=== PATIENT | female | born 1940 | race Caucasian/White ===

== ENCOUNTER 2017-04-28 20:35 | Emergency (ER) | payer MEDICARE, OTHER ==
[2017-04-28] MEDS ORDERED: Nitroglycerin 50 MG/250 ML BOT 250 ML ONE (21:33)
[2017-04-28 21:48] LABS: #Basophils 0.1 thou/uL (0.0-0.2); #Eosinphils 0.1 thou/uL (0.0-0.7); #Lymphocytes 2.3 thou/uL (1.20-3.40); #Monocytes 0.4 thou/uL (0.11-0.59); %Eosinophils 1.2 % (0.0-10.0); %Lymphocytes 39.7 % (21.0-51.0); %Neutrophils 51.1 % (42.0-75.0); Hemoglobin 14.1 g/dL (12.0-16.0); Mean Corpuscular HGB CONC 31.9 g/dL (32.0-36.0); Mean Corpuscular Hemoglobin 29.1 pg (27.0-31.0); Mean Corpuscular Volume 91.1 fl (81.0-99.0); Mean Platelet Volume 7.4 fL (7.4-10.4); Platelet Count 197 thou/uL (130-400); RBC Distribution Width 13.1 % (11.5-14.5); Red Blood Cell (RBC) Count 4.87 mill/uL (4.20-5.40); White Blood Cell (WBC) Count 5.9 thou/uL (4.8-10.8)
[2017-04-28 21:49] LABS: Bilirubin Negative (Negative); Blood, Urine Negative (Negative); Clarity Clear (Clear); Glucose, Urine (Dipstick) Negative (Negative); Leukocyte Negative (Negative); Nitrite Negative (Negative); Protein, Urine (Dipstick) 30 mg/dL (Neg-Trace); Specific Gravity, Urine 1.015 (1.005-1.030); Urobilinogen 0.2 mg/dL (0.2-1.0)
[2017-04-28 21:59] LABS: ALT (SGPT) Less than 3 U/L (8-55); AST (SGOT) 21 U/L (5-34); Albumin 4.2 g/dL (3.4-4.8); Alkaline Phosphatase 90 U/L (40-150); Anion Gap 17 mmol/L (10-20); BUN (Urea Nitrogen) 18 mg/dL (9.8-20.1); Bilirubin, Total 0.4 mg/dL (0.2-1.2); Calc. Creatinine Clearance 0 mL/min (70-130); Calcium 9.8 mg/dL (7.8-10.44); Carbon Dioxide 26 mmol/L (23-31); Chloride 102 mmol/L (98-107); Estimated GFR-MDRD 45; Globulin 3.9 g/dL (2.4-3.5); Glucose 81 mg/dL (83-110); Protein, Total 8.1 g/dL (6.0-8.3); Sodium 141 mmol/L (136-145)
[2017-04-28 22:02] LABS: CKMB 1.6 ng/mL (0-6.6); Troponin I Less than 0.010 ng/mL (< 0.028)
[2017-04-28 22:07] LABS: Other Microscopic Description 1+ MUCUS; RBC/HPF 0-3 HPF (0-3); Squamous Epithelial 0-3 HPF (0-3); WBC/HPF 0-3 HPF (0-3)
--- NOTE | 2017-04-28 22:08 | CT ---
CT BRAIN WITHOUT CONTRAST: Date: 04-28-17 Comparison: 07-13-14 FINDINGS: Atrophy is present, predominately in the frontal region. The ventricles are normal in size for age a nd atrophy. No intracranial bleeding or extraaxial hematoma was seen. There is no sign of acute stro ke, mass, or edema. The calvarium appears intact. The sphenoid sinus is clear, as are the mastoid ai r cells. IMPRESSION: Chronic changes but no acute findings. Report discussed with Dr. Chew at 2113 hours on 04-28-17. POS: HOME
--- NOTE | 2017-04-29 07:04 | RAD ---
PORTABLE CHEST: Date: 04/28/17 An AP portable film at 2110 hours is compared with an 05/04/16 study. FINDINGS: The heart is normal in size. Median sternotomy sutures are seen from prior surgery. The lungs are cl ear. No infiltrate, effusion, or pneumothorax seen. The bony structures appear intact. IMPRESSION: No acute thoracic findings. POS: HOME
== END 2017-04-28 22:45 | disposition short-term general hospital (02) ==
LOC: BURERS 20:35
DX: I67.4 Hypertensive encephalopathy (principal); E78.5 Hyperlipidemia, unspecified; E03.9 Hypothyroidism, unspecified; I11.0 Hypertensive heart disease with heart failure; I50.9 Heart failure, unspecified; Z79.899 Other long term (current) drug therapy; W17.89XA Other fall from one level to another, initial encounter
CPT/HCPCS: 36415; 70450; 71010; 80053; 81003; 81015; 82553; 83605; 84484; 85025; 87040; 87086; 93005; 94760; 96365

== ENCOUNTER 2018-01-20 14:21 | Emergency (ER) | payer MEDICARE, OTHER ==
[2018-01-20] MEDS ORDERED: Ibuprofen 800 MG TAB ONE (15:26)
[2018-01-20] MEDS ORDERED: HYDROcodone/Acetaminophen 5/325 mg Tablet ONE (15:26)
--- NOTE | 2018-01-20 21:26 | RAD ---
LEFT ANKLE THREE VIEWS: 01/20/2018 FINDINGS: A transverse fracture is present through the tip of the lateral malleolus. There is no significant d isplacement. The distal tibia appears intact. There is considerable soft tissue swelling around the ankle. The tibiotalar joint seemed unremarkable. Incidentally noted was a large calcaneal spur. I t is difficult on these views for me to fully assess the base of the fifth metatarsal. If there is a ny pain here, foot films would be needed to clear it of any fracture. IMPRESSION: 1. Nondisplaced fracture of the distal fibula, at the lateral malleolus. 2. Difficult to assess base of the fifth metatarsal. POS: HOME
== END 2018-01-20 15:45 | disposition home or self-care (01) ==
LOC: BURERS 14:21
DX: S82.65XA Nondisplaced fracture of lateral malleolus of left fibula, initial encounter for closed fracture (principal); S80.01XA Contusion of right knee, initial encounter; E78.5 Hyperlipidemia, unspecified; I11.0 Hypertensive heart disease with heart failure; I50.9 Heart failure, unspecified; E03.9 Hypothyroidism, unspecified; Z87.891 Personal history of nicotine dependence; Z79.899 Other long term (current) drug therapy; V89.2XXA Person injured in unspecified motor-vehicle accident, traffic, initial encounter

== ENCOUNTER 2018-03-12 10:11 | Emergency (ER) | payer MEDICARE, OTHER ==
[2018-03-12 10:57] LABS: Bilirubin Negative (Negative); Blood, Urine Trace (Negative); Clarity Clear (Clear); Glucose, Urine (Dipstick) Negative (Negative); Leukocyte Negative (Negative); Nitrite Negative (Negative); Protein, Urine (Dipstick) Trace mg/dL (Neg-Trace); Urobilinogen 0.2 mg/dL (0.2-1.0); pH, Urine 6.5 (5.0-9.0)
[2018-03-12 11:06] LABS: Anion Gap 13 mmol/L (10-20); BUN (Urea Nitrogen) 25 mg/dL (9.8-20.1); Bacteria/HPF Rare-Few HPF (None Seen); Calc. Creatinine Clearance 0 mL/min (70-130); Carbon Dioxide 28 mmol/L (23-31); Chloride 107 mmol/L (98-107); Estimated GFR-MDRD 73; Glucose 88 mg/dL (83-110); Potassium 3.6 mmol/L (3.5-5.1); RBC/HPF 0-3 HPF (0-3); Sodium 144 mmol/L (136-145); Squamous Epithelial 0-3 HPF (0-3); WBC/HPF 0-3 HPF (0-3)
== END 2018-03-12 11:27 | disposition home or self-care (01) ==
LOC: BURERS 10:11
DX: I11.0 Hypertensive heart disease with heart failure (principal); E03.9 Hypothyroidism, unspecified; E78.5 Hyperlipidemia, unspecified; Z87.891 Personal history of nicotine dependence; Z79.899 Other long term (current) drug therapy
CPT/HCPCS: 36415; 80048; 81003; 81015; 99283

== ENCOUNTER 2019-09-22 16:46 | Emergency (ER) | payer MEDICARE, OTHER ==
[2019-09-22 17:22] LABS: #Basophils 0.1 thou/uL (0.0-0.2); #Monocytes 0.3 thou/uL (0.11-0.59); %Basophils 1.1 % (0.0-1.0); %Eosinophils 0.4 % (0.0-10.0); %Lymphocytes 31.1 % (21.0-51.0); %Monocytes 5.4 % (0.0-10.0); Hemoglobin 12.6 g/dL (12.0-16.0); Mean Corpuscular HGB CONC 32.4 g/dL (32.0-36.0); Mean Corpuscular Hemoglobin 29.1 pg (27.0-31.0); Mean Corpuscular Volume 89.6 fL (78.0-98.0); Mean Platelet Volume 8.5 fL (7.4-10.4); Platelet Count 143 thou/uL (130-400); RBC Distribution Width 14.5 % (11.5-14.5); Red Blood Cell (RBC) Count 4.34 mill/uL (4.20-5.40); White Blood Cell (WBC) Count 6.4 thou/uL (4.8-10.8)
[2019-09-22 17:34] LABS: ALT (SGPT) 18 U/L (8-55); AST (SGOT) 29 U/L (5-34); Alkaline Phosphatase 80 U/L (40-110); Anion Gap 20 mmol/L (10-20); BUN (Urea Nitrogen) 41 mg/dL (9.8-20.1); Bilirubin, Total 0.3 mg/dL (0.2-1.2); Calc. Creatinine Clearance 0 mL/min (70-130); Calcium 8.9 mg/dL (7.8-10.44); Carbon Dioxide 16 mmol/L (23-31); Chloride 105 mmol/L (98-107); Estimated GFR-MDRD 14; Globulin 3.2 g/dL (2.4-3.5); Glucose 93 mg/dL (83-110); Potassium 4.1 mmol/L (3.5-5.1); Protein, Total 7.2 g/dL (6.0-8.3); Sodium 137 mmol/L (136-145)
[2019-09-22] MEDS ORDERED: Cefepime 1 GM VIAL ONE (17:42)
[2019-09-22 18:10] LABS: Bilirubin Small (Negative); Blood, Urine Negative (Negative); Clarity Cloudy (Clear); Glucose, Urine (Dipstick) Negative (Negative); Leukocyte Negative (Negative); Nitrite Negative (Negative); Protein, Urine (Dipstick) Negative (Neg-Trace); Urobilinogen 0.2 mg/dL (Less than 2)
--- NOTE | 2019-09-22 21:59 | RAD ---
PORTABLE CHEST 09/22/19 An AP portable film at 1747 is compared with a 11/29/17 study. The heart is normal in size. The lungs are clear with no sign of pneumonia. There are no effusions. T here has been no adverse change since the prior study. There is no vascular congestion or edema. IMPRESSION: No acute findings. POS: HOME
== END 2019-09-22 19:10 | disposition short-term general hospital (02) ==
LOC: BURERS 16:46
DX: E86.0 Dehydration (principal); R00.1 Bradycardia, unspecified; N17.9 Acute kidney failure, unspecified; E78.5 Hyperlipidemia, unspecified; I11.0 Hypertensive heart disease with heart failure; I50.9 Heart failure, unspecified; E03.9 Hypothyroidism, unspecified; Z87.891 Personal history of nicotine dependence; Z79.899 Other long term (current) drug therapy; Z79.82 Long term (current) use of aspirin
CPT/HCPCS: 51701; 71045; 81003; 83605; 84484; 87040; 87633; 87804 ×2; 93005; 94760; 96361; 96365; 99285; U0002; 80053; 84443; 85025; 87635; A4353; J0692; J3370